=== PATIENT | female | born 1990 | race Caucasian/White ===

== ENCOUNTER → 2017-09-03 | Outpatient (CLI) | payer OTHER ==
[~2017-09-03] MED LIST: No meds per pt.
[2017-09-03 08:47] LABS: HEMATOCRIT 36.6 % (34.6-47.8); HEMOGLOBIN 12.2 g/dL (11.7-16.4); WHITE BLOOD COUNT 5.9 x10^3/uL (3.4-10)
== END | disposition home or self-care (01) ==
LOC: STAR 07:27
PROVIDERS: ATTEND Student in an Organized Health Care Education/Training Program
DX: Z01.818 Encounter for other preprocedural examination (principal); H72.02 Central perforation of tympanic membrane, left ear
CPT/HCPCS: 36415; 85025

== ENCOUNTER 2017-09-10 06:42 | Day surgery (SDC) | payer OTHER ==
[~2017-09-10] VITALS: Ht 157.5 cm; Wt 70.2 kg
[2017-09-10 07:11] VITALS: BP 107/68
[2017-09-10] MEDS ORDERED: LACTATED RINGERS 1,000 ML IV SCH (07:14)
[2017-09-10 07:29] LABS: HCG UR LOT HCG7030192
[2017-09-10 07:35] LABS: HCG UR OBC PASS
[2017-09-10] MEDS ORDERED: FENTANYL PF 100 MCG/2ML ONE ×2 (08:39)
[2017-09-10] MEDS ORDERED: MIDAZOLAM 1 MG/ML, 2ML ONE (08:40)
[2017-09-10] MEDS ORDERED: LIDOCAINE/PF 1%, 30ML ONE (09:11)
[2017-09-10] MEDS ORDERED: EPINEPHRINE 1 MG/ML, 1ML ONE (09:11)
[2017-09-10] MEDS ORDERED: EPINEPHRINE TOPICAL SOLN 1 MG/ML, 30ML ONE (09:12)
[2017-09-10] MEDS ORDERED: KETOROLAC 30 MG/1 ML ONE (09:32)
[2017-09-10] MEDS ORDERED: CIPROFLOXACIN/HYDROCORTISONE EAR SUSP 0.2-1%, 10ML ONE (10:55)
[2017-09-10] MEDS ORDERED: DEXAMETHASONE 4 MG/ML, 1ML ONE (11:44)
[2017-09-10] MEDS ORDERED: CEFAZOLIN 1,000 MG ONE (11:44)
[2017-09-10] MEDS ORDERED: PROPOFOL 10 MG/ML, 20ML ONE (11:44)
[2017-09-10] MEDS ORDERED: ONDANSETRON 2MG/ML, 2ML ONE (11:44)
[2017-09-10] MEDS ORDERED: MEPERIDINE/PF 25MG/0.5ML IVPush PRN (12:00)
[2017-09-10] MEDS ORDERED: MIDAZOLAM 1 MG/ML, 2ML IV PRN (12:00)
[2017-09-10] MEDS ORDERED: DIAZEPAM 5 MG/ML, 2ML IVPush PRN (12:00)
[2017-09-10] MEDS ORDERED: LABETALOL 5MG/ML, 20ML IV PRN (12:00)
[2017-09-10] MEDS ORDERED: ONDANSETRON 2MG/ML, 2ML IVPush PRN (12:00)
[2017-09-10] MEDS ORDERED: PROMETHAZINE 25 MG/ML, 1ML IV PRN (12:00)
[2017-09-10] MEDS ORDERED: METOPROLOL 1 MG/ML, 5ML IV PRN (12:00)
[2017-09-10] MEDS ORDERED: ACETAMINOPHEN 325 MG TABLET PO PRN (12:00)
[2017-09-10] MEDS ORDERED: EPHEDRINE 50 MG/ML, 1ML IVPush PRN (12:00)
[2017-09-10] MEDS ORDERED: HYDROmorphone 1 MG/ML, 1ML IV PRN (12:00)
[2017-09-10] MEDS ORDERED: HYDROcodone/APAP 7.5-325MG/15ML UDC PO PRN (12:00)
[2017-09-10] MEDS ORDERED: FENTANYL PF 100 MCG/2ML IV PRN (12:00)
[2017-09-10] MEDS ORDERED: ALBUTEROL SULFATE 2.5 MG/3 ML NPPB PRN (12:00)
[2017-09-10] MEDS ORDERED: OXYcodone 5 MG/5 ML ORAL.SOL UDC PO PRN (12:00)
[2017-09-10] MEDS ORDERED: hydrALAzine 20 MG/ML, 1ML IV PRN (12:00)
[2017-09-10] MEDS ORDERED: ACETAMINOPHEN 650 MG/20.3 ML UDC ONE (12:24)
== END 2017-09-10 13:50 ==
LOC: OUT 06:42
PROVIDERS: ATTEND Student in an Organized Health Care Education/Training Program
DX: H72.92 Unspecified perforation of tympanic membrane, left ear (principal); H90.12 Conductive hearing loss, unilateral, left ear, with unrestricted hearing on the contralateral side
CPT/HCPCS: 20926; 69631; 81025; J0171; J0690; J1100; J1885; J2250; J2405; J2704; J3010; J3490